=== PATIENT | male | born 1950 | race Hispanic/Latino ===

== ENCOUNTER → 2018-03-18 | Outpatient (CLI) | payer OTHER ==
[~2018-03-18] MED LIST: ACEB200 PO; AEC81 PO; ASCO500T9 PO; CITA40TA6 PO; CYAN10009 PO; FISH OIL OMEGA1 EACH PO; ISOS30TA6 PO; NITR0.4T SL; ROSU40 PO; TAMS0.4C32 PO; VITA400C73 PO; VITAMIN D PO
== END | disposition home or self-care (01) ==
LOC: SHCH 08:33
PROVIDERS: ATTEND Internal Medicine Cardiovascular Disease
DX: I25.10 Atherosclerotic heart disease of native coronary artery without angina pectoris (principal); Z95.1 Presence of aortocoronary bypass graft
CPT/HCPCS: 93306

== ENCOUNTER → 2020-10-03 | Outpatient (CLI) | payer OTHER ==
[~2020-10-03] MED LIST changes: +ASCO500T20 PO; -ASCO500T9 PO; +CYAN-52 PO; -CYAN10009 PO; -ISOS30TA6 PO; +ISOS30TA92 PO
== END | disposition home or self-care (01) ==
LOC: SHCH 11:09
PROVIDERS: ATTEND Internal Medicine Cardiovascular Disease
DX: I25.810 Atherosclerosis of coronary artery bypass graft(s) without angina pectoris (principal); I10 Essential (primary) hypertension
CPT/HCPCS: 93880

== ENCOUNTER → 2022-02-20 | Outpatient (CLI) | payer OTHER ==
[~2022-02-20] MED LIST changes: -ACEB200 PO; +ACEB200C18 PO; +CITA-108 PO; -CITA40TA6 PO
== END | disposition home or self-care (01) ==
LOC: SHCH 12:37
PROVIDERS: ATTEND Internal Medicine Cardiovascular Disease
DX: I73.9 Peripheral vascular disease, unspecified (principal)
CPT/HCPCS: 93925